=== PATIENT | male | born 1940 | race Caucasian/White ===

== ENCOUNTER → 2017-08-09 08:34 | Outpatient (CLI) | payer MEDICARE, BC, SELFPAY ==
[2017-08-09 09:07] LABS: Absolute Lymphocyte Count 1.33 X10^3/ul (0.83-4.51); Basophil# 0.03 X10^3/uL; Basophil% 0.6 % (0-1); Eosinophil# 0.26 X10^3/uL; Eosinophils% 5.1 % (0-5); Hematocrit 40.6 % (40-54); Hemoglobin 13.2 g/dl (13.0-16.5); Lymphocyte # 1.33 X10^3/ul (4.0); Mean Corp Hgb Conc 32.5 g/gl (32-36); Mean Corpuscular Hgb 30.4 pg (27.0-32.0); Mean Corpuscular Volume 93.5 fL (80-94); Mean Platelet Vol. 9.6 fl (6.2-12.0); Monocyte# 0.47 X10^3/uL; Monocyte% 9.2 % (0-10); Neutrophil # 3.03 X10^3/uL (2.7-7.7); Neutrophil % 59.1 % (47-70); Platelet Count 127 K/mm3 (150-450); RBC Distribution Width CV 13.1 % (11.6-14.6); Red Blood Count 4.34 M/mm3 (4.6-6.2); White Blood Count 5.1 K/mm3 (4.4-11.0)
[2017-08-09 09:15] LABS: POSITIVE COUNT NO; POSITIVE DIFFERENTIAL NO; POSITIVE MORPHOLOGY NO
[2017-08-09 09:21] LABS: AST(SGOT) 18 U/L (15-37); Alanine Aminotransfer ALT/SGPT 19 U/L (16-61); Albumin, Serum 3.4 g/dL (3.2-5.0); Alkaline Phosphatase 105 U/L (45-117); Anion Gap 5 (5-15); BUN 15 mg/dL (7-18); BUN/Creat Ratio 18.9 RATIO (10-20); Calcium,Total 8.3 mg/dL (8.5-10.1); Chloride 106 mmol/L (98-107); Creatinine, Serum 0.79 mg/dL (0.70-1.30); EST Glomerular Filtration Rate 101 mL/min (>60); Est Glom Filt Rate - Afr Amer 122 mL/min (>60); Globulin 3.5 g/dL (2.2-4.2); Glucose 94 mg/dL (74-106); Phosphorus 3.1 mg/dL (2.5-4.9); Potassium 3.8 mmol/L (3.5-5.1); Protein, Total 6.9 g/dL (6.4-8.2); Sodium Level 140 mmol/L (136-145)
== END ==
PROVIDERS: Family Provider Family Medicine; PCP Family Medicine; Visit Provider Internal Medicine
DX: D68.4 Acquired coagulation factor deficiency (principal); E87.8 Other disorders of electrolyte and fluid balance, not elsewhere classified; Z91.89 Other specified personal risk factors, not elsewhere classified; E83.40 Disorders of magnesium metabolism, unspecified; K76.9 Liver disease, unspecified; T56.894A Toxic effect of other metals, undetermined, initial encounter; R68.89 Other general symptoms and signs; R63.3 Feeding difficulties; Z78.9 Other specified health status; E83.39 Other disorders of phosphorus metabolism
CPT/HCPCS: 36592; 80053; 83735; 84100; 85025; A4216

== ENCOUNTER → 2017-09-14 08:58 | Outpatient (CLI) | payer MEDICARE, BC, SELFPAY ==
[2017-09-14 09:41] LABS: Absolute Lymphocyte Count 1.17 X10^3/ul (0.83-4.51); Absolute Neutrophil Count 5.5 X10^3/uL (2.0-7.7); Basophil# 0.05 X10^3/uL; Basophil% 0.6 % (0-1); Eosinophil# 0.23 X10^3/uL; Hematocrit 42.7 % (40-54); Hemoglobin 14.3 g/dl (13.0-16.5); Lymphocyte # 1.17 X10^3/ul (4.0); Lymphocyte % 15.1 % (19-41); Mean Corp Hgb Conc 33.5 g/gl (32-36); Mean Corpuscular Hgb 31.2 pg (27.0-32.0); Mean Platelet Vol. 10.2 fl (6.2-12.0); Monocyte# 0.75 X10^3/uL; Monocyte% 9.7 % (0-10); Neutrophil # 5.54 X10^3/uL (2.7-7.7); Neutrophil % 71.5 % (47-70); Platelet Count 143 K/mm3 (150-450); RBC Distribution Width CV 12.9 % (11.6-14.6); RBC Distribution Width SD 43.1 fl (35.1-43.9); Red Blood Count 4.59 M/mm3 (4.6-6.2); White Blood Count 7.8 K/mm3 (4.4-11.0)
[2017-09-14 09:44] LABS: POSITIVE COUNT NO; POSITIVE DIFFERENTIAL NO; POSITIVE MORPHOLOGY NO
[2017-09-14 10:36] LABS: ALB/GLOB Ratio 0.9 RATIO (0.9-2.4); AST(SGOT) 20 U/L (15-37); Alanine Aminotransfer ALT/SGPT 18 U/L (16-61); Albumin, Serum 3.6 g/dL (3.2-5.0); Alkaline Phosphatase 100 U/L (45-117); Anion Gap 8 (5-15); BUN 16 mg/dL (7-18); CRP < 2.90 mg/L (0.0-3.0); Calcium,Total 8.4 mg/dL (8.5-10.1); Chloride 104 mmol/L (98-107); EST Glomerular Filtration Rate 99 mL/min (>60); Est Glom Filt Rate - Afr Amer 120 mL/min (>60); Globulin 3.8 g/dL (2.2-4.2); Glucose 92 mg/dL (74-106); Magnesium 2.3 mg/dL (1.6-2.6); Phosphorus 3.8 mg/dL (2.5-4.9); Potassium 4.1 mmol/L (3.5-5.1); Protein, Total 7.4 g/dL (6.4-8.2); Sodium Level 139 mmol/L (136-145)
[2017-09-15 08:58] LABS: Vitamin B12 560 pg/mL (211-911)
[2017-09-17 09:52] LABS: Methylmalonic Acid Bld 156 nmol/L (0-378)
== END ==
PROVIDERS: Family Provider Family Medicine; PCP Family Medicine
DX: D68.4 Acquired coagulation factor deficiency (principal); K76.9 Liver disease, unspecified; T56.894A Toxic effect of other metals, undetermined, initial encounter; R68.89 Other general symptoms and signs; E83.39 Other disorders of phosphorus metabolism; E83.40 Disorders of magnesium metabolism, unspecified; R63.3 Feeding difficulties; Z78.9 Other specified health status; Z91.89 Other specified personal risk factors, not elsewhere classified
CPT/HCPCS: 36592; 80053; 82306; 82607; 83735; 83921; 84100; 85025; 86140; A4216

== ENCOUNTER → 2017-10-26 09:02 | Outpatient (CLI) | payer MEDICARE, BC, SELFPAY ==
[2017-10-26 09:12] LABS: Absolute Lymphocyte Count 0.99 X10^3/ul (0.83-4.51); Absolute Neutrophil Count 5.3 X10^3/uL (2.0-7.7); Basophil# 0.03 X10^3/uL; Basophil% 0.4 % (0-1); Eosinophil# 0.25 X10^3/uL; Eosinophils% 3.5 % (0-5); Hematocrit 41.5 % (40-54); Hemoglobin 13.9 g/dl (13.0-16.5); Lymphocyte # 0.99 X10^3/ul (4.0); Lymphocyte % 13.8 % (19-41); Mean Corp Hgb Conc 33.5 g/gl (32-36); Mean Corpuscular Hgb 31.2 pg (27.0-32.0); Mean Corpuscular Volume 93.3 fL (80-94); Mean Platelet Vol. 10.4 fl (6.2-12.0); Monocyte# 0.59 X10^3/uL; Monocyte% 8.2 % (0-10); Neutrophil # 5.31 X10^3/uL (2.7-7.7); Platelet Count 136 K/mm3 (150-450); RBC Distribution Width CV 12.9 % (11.6-14.6); RBC Distribution Width SD 43.1 fl (35.1-43.9); Red Blood Count 4.45 M/mm3 (4.6-6.2); White Blood Count 7.2 K/mm3 (4.4-11.0)
[2017-10-26 09:13] LABS: POSITIVE COUNT NO; POSITIVE DIFFERENTIAL NO; POSITIVE MORPHOLOGY NO
[2017-10-26 09:38] LABS: ALB/GLOB Ratio 0.9 RATIO (0.9-2.4); AST(SGOT) 20 U/L (15-37); Alanine Aminotransfer ALT/SGPT 15 U/L (16-61); Albumin, Serum 3.5 g/dL (3.2-5.0); Alkaline Phosphatase 101 U/L (45-117); Anion Gap 7 (5-15); BUN 18 mg/dL (7-18); BUN/Creat Ratio 24.8 RATIO (10-20); Calcium,Total 8.3 mg/dL (8.5-10.1); Chloride 106 mmol/L (98-107); Creatinine, Serum 0.73 mg/dL (0.70-1.30); EST Glomerular Filtration Rate 111 mL/min (>60); Est Glom Filt Rate - Afr Amer 135 mL/min (>60); Globulin 3.8 g/dL (2.2-4.2); Glucose 95 mg/dL (74-106); Magnesium 2.3 mg/dL (1.6-2.6); Phosphorus 3.1 mg/dL (2.5-4.9); Potassium 4.5 mmol/L (3.5-5.1); Protein, Total 7.3 g/dL (6.4-8.2); Sodium Level 140 mmol/L (136-145)
[2017-10-30 10:50] LABS: Methylmalonic Acid Bld 236 nmol/L (0-378)
[2017-11-01 11:18] LABS: Vitamin A, Retinol 42.8
== END ==
PROVIDERS: Family Provider Family Medicine; PCP Family Medicine
DX: E87.8 Other disorders of electrolyte and fluid balance, not elsewhere classified (principal); E83.39 Other disorders of phosphorus metabolism; E83.40 Disorders of magnesium metabolism, unspecified; K76.9 Liver disease, unspecified; D68.4 Acquired coagulation factor deficiency; R63.3 Feeding difficulties; R68.89 Other general symptoms and signs; R79.82 Elevated C-reactive protein (CRP); Z78.9 Other specified health status; Z91.89 Other specified personal risk factors, not elsewhere classified
CPT/HCPCS: 36592; 80053; 83735; 83921; 84100; 84590; 85025; A4216

== ENCOUNTER → 2017-12-20 09:00 | Outpatient (CLI) | payer MEDICARE, BC, SELFPAY ==
[2017-12-20 09:57] LABS: Hematocrit 41.1 % (40-54); Hemoglobin 13.3 g/dl (13.0-16.5); Mean Corp Hgb Conc 32.4 g/gl (32-36); Mean Corpuscular Hgb 30.7 pg (27.0-32.0); Mean Corpuscular Volume 94.9 fL (80-94); Platelet Count 118 K/mm3 (150-450); RBC Distribution Width CV 13.2 % (11.6-14.6); RBC Distribution Width SD 46.3 fl (35.1-43.9); Red Blood Count 4.33 M/mm3 (4.6-6.2); Scan Indicated on CBC? Y/N NO; White Blood Count 4.7 K/mm3 (4.4-11.0)
[2017-12-20 10:05] LABS: ALB/GLOB Ratio 0.9 RATIO (0.9-2.4); AST(SGOT) 22 U/L (15-37); Alanine Aminotransfer ALT/SGPT 20 U/L (16-61); Albumin, Serum 3.4 g/dL (3.2-5.0); Alkaline Phosphatase 105 U/L (45-117); Anion Gap 8 (5-15); BUN 15 mg/dL (7-18); BUN/Creat Ratio 20.8 RATIO (10-20); Calcium,Total 8.5 mg/dL (8.5-10.1); Chloride 105 mmol/L (98-107); Creatinine, Serum 0.72 mg/dL (0.70-1.30); EST Glomerular Filtration Rate 112 mL/min (>60); Est Glom Filt Rate - Afr Amer 136 mL/min (>60); Globulin 3.7 g/dL (2.2-4.2); Glucose 90 mg/dL (74-106); Phosphorus 2.9 mg/dL (2.5-4.9); Potassium 3.9 mmol/L (3.5-5.1); Protein, Total 7.1 g/dL (6.4-8.2); Sodium Level 140 mmol/L (136-145)
== END ==
PROVIDERS: Family Provider Family Medicine; PCP Family Medicine
DX: E87.8 Other disorders of electrolyte and fluid balance, not elsewhere classified (principal); E83.39 Other disorders of phosphorus metabolism; E83.40 Disorders of magnesium metabolism, unspecified; R63.3 Feeding difficulties; Z91.89 Other specified personal risk factors, not elsewhere classified; Z78.9 Other specified health status
CPT/HCPCS: 36592; 80053; 83735; 84100; 85027; A4216

== ENCOUNTER 2017-12-22 09:27 | Emergency (ER) | payer MEDICARE, BC, SELFPAY ==
[2017-12-22] VITALS (17 sets, daily range): BP systolic 61–178; BP diastolic 38–119; PULSE 75–149; RESP 12–18; O2SAT 91–100
[2017-12-22] MEDS: Etomidate 20 MG/10 ML Vial IV (09:30)
[2017-12-22] MEDS: Succinylcholine Chloride 200 MG/10 ML Vial 100 MG IV (09:30)
--- NOTE | 2017-12-22 09:39 | CT_ITS ---
STUDY: CT BRAIN WITHOUT CONTRAST REASON FOR EXAM: Male, 77 years old. Unresponsive. Severe headaches. RADIATION DOSAGE (If Supplied By Facility): CTDIvol = ( 44.98 ) mGy, DLP = ( 812.98 ) mGycm TECHNIQUE: Transaxial CT imaging of the brain was performed without administration of intravenous contrast material. Individualized dose optimization techniques were used for this CT. COMPARISON: None. FINDINGS: Normal soft tissue structures. Normal calvarium. There is evidence of a subarachnoid as well as intraventricular acute hemorrhage. Blood is seen within the fourth ventricle, third ventricle and lateral ventricles as well as the cisterns. Air fluid level in the left maxillary sinus. Partial opacification of the ethmoid sinuses bilaterally. CT/Brain/Head without Contrast IMPRESSION: Subarachnoid, intraventricular acute hemorrhage. Ruptured aneurysm should be ruled out. Electronically Signed: Bryce Hernandez MD at 9:54 EDT Tel [phone], Service support ,
--- NOTE | 2017-12-22 09:40 | EKG12_ITS ---
Test Reason : CODE BLUE Blood Pressure : / mmHG Vent. Rate : 147 BPM Atrial Rate : 081 BPM P-R Int : 136 ms QRS Dur : 082 ms QT Int : 238 ms P-R-T Axes : 078 045 010 degrees QTc Int : 372 ms Sinus rhythm with Premature atrial complexes Abnormal ECG When compared with ECG of 11-OCT-2012 01:53, Premature atrial complexes are now Present ST now depressed in Lateral leads Confirmed by MAUREEN ROSA ([id number]), map editor KARL CROUCH ([id number]) on 01/04/2018 2:10:13 PM Referred By: Damon Harrington Confirmed By:MAUREEN ROSA
--- NOTE | 2017-12-22 09:44 | CM.ED ---
Social Work Note SW responded to [employer]. ISI face to face with pt's son, Pieter Conner Jr. According to Pieter the pt and he were [place] in [email or web address] this [place] when the pt stated that his head was killing him. Pieter drove him to the hospital. Support provided. Declines to have SW contact anyone at this time. States that he will contact his mother, and then will need to go pick her up as she does not drive. Claims that the pt was in [facility] for 30+ days and has been on TPN. Reports that the pt is primarily independent and was just mowing and gardening this week. Pt's PCP is Dr. Rosales at [facility]. If pt would need transferred they would like this to be to [facility]. Direct Pieter to where EMS parked his vehicle and directed Pieter on how to return to ED and the room his father would be in. SW to continue to follow and assist. Liliana Ovalles, FORKLIFT TRUCK OPERATOR, SPECTROGRAPHER
[2017-12-22] MEDS: 0.9% Normal Saline 1,000 ML 1000 ML IV (09:50)
[2017-12-22] MEDS: 0.9% Normal Saline 1,000 ML 999 ML IV ×2 (09:55→10:13)
[2017-12-22 10:00] LABS: Absolute Lymphocyte Count 4.11 X10^3/ul (0.83-4.51); Absolute Neutrophil Count 7.1 X10^3/uL (2.0-7.7); Basophil# 0.06 X10^3/uL; Basophil% 0.5 % (0-1); Eosinophil# 0.19 X10^3/uL; Eosinophils% 1.5 % (0-5); Hematocrit 43.5 % (40-54); Hemoglobin 13.8 g/dl (13.0-16.5); Lymphocyte # 4.11 X10^3/ul (4.0); Lymphocyte % 33.1 % (19-41); Mean Corp Hgb Conc 31.7 g/gl (32-36); Mean Corpuscular Hgb 30.8 pg (27.0-32.0); Mean Corpuscular Volume 97.1 fL (80-94); Mean Platelet Vol. 10.6 fl (6.2-12.0); Monocyte# 0.97 X10^3/uL; Monocyte% 7.8 % (0-10); Neutrophil # 7.05 X10^3/uL (2.7-7.7); Neutrophil % 56.7 % (47-70); POSITIVE COUNT NO; POSITIVE DIFFERENTIAL NO; POSITIVE MORPHOLOGY NO; Platelet Count 138 K/mm3 (150-450); RBC Distribution Width CV 13.4 % (11.6-14.6); RBC Distribution Width SD 47.9 fl (35.1-43.9); Red Blood Count 4.48 M/mm3 (4.6-6.2); White Blood Count 12.4 K/mm3 (4.4-11.0)
[2017-12-22 10:15] LABS: Base Excess -7 mmol/L (-2 to +2); Bicarbonate 20.7 mmol/L (22-26); Blood Gas Specimen Type ART; FI02 60; Mode A-C; O2 Delivery Device Vent; PEEP 5; PO2 119 mmHG (75-100); RR 14; SITE R Brachial; SO2 97 % (95-99); Time Given 1008; Total Carbon Dioxide 22 mmol/L; Vt 500; pCO2 53.8 mmHg (35-45); pH 7.19 (7.35-7.45)
[2017-12-22 10:15] LABS: ALB/GLOB Ratio 0.9 RATIO (0.9-2.4); AST(SGOT) 33 U/L (15-37); Alanine Aminotransfer ALT/SGPT 28 U/L (16-61); Albumin, Serum 3.5 g/dL (3.2-5.0); Alkaline Phosphatase 115 U/L (45-117); Anion Gap 10 (5-15); BUN 22 mg/dL (7-18); BUN/Creat Ratio 18.6 RATIO (10-20); Calcium,Total 8.2 mg/dL (8.5-10.1); Chloride 108 mmol/L (98-107); Creatinine, Serum 1.18 mg/dL (0.70-1.30); EST Glomerular Filtration Rate 64 mL/min (>60); Est Glom Filt Rate - Afr Amer 77 mL/min (>60); Estimated Creatinine Clearance 54.49 ml/min; Globulin 3.8 g/dL (2.2-4.2); Glucose 247 mg/dL (74-106); Potassium 4.2 mmol/L (3.5-5.1); Protein, Total 7.3 g/dL (6.4-8.2); Sodium Level 142 mmol/L (136-145)
[2017-12-22 10:21] LABS: International Normalized Ratio 1.1; Partial Thromboplast Time 26.9 Seconds (24.1-36.2); Prothrombin Time (Protime)PT. 13.9 SECONDS (11.7-14.9)
[2017-12-22] MEDS: levETIRAcetam IV 1,000 MG/100 ML BAG 400 MG IV (10:28)
--- NOTE | 2017-12-22 10:35 | ED.RN ---
[facility] ARRIVED
--- NOTE | 2017-12-22 10:43 | ED.RN ---
[facility] TRANSPORT AT BEDSIDE, WITH DR UDTTON, ATTEMPTING CENTRAL LINE. REPORT GIVEN TO TRANSPORT TEAM BY ED MD.
[2017-12-22 10:50] LABS: Lactic Acid 3.6 mmol/L (0.4-2.0)
--- NOTE | 2017-12-22 10:50 | ED.RN ---
lactic 3.6, aware.
--- NOTE | 2017-12-22 10:51 | RAD_ITS ---
STUDY: X-RAY CHEST REASON FOR EXAM: Male, 77 years old. Unresponsive. Endotracheal tube placement. TECHNIQUE: Single AP portable view of the chest. COMPARISON: None. FINDINGS: An endotracheal tube is in situ. The tip is at 3.2 sinus proximal to the vi. A right-sided central catheter is seen with the tip in the right atrium. EKG electrodes are seen. Findings suggestive of a mild degree of vascular congestion. Increased markings at the right lung base most likely representing scarring. Left pleural effusion with a left basilar infiltration and/or atelectasis. There is mild cardiac enlargement. Normal mediastinum and torrie. Normal visualized pulmonary arteries. There is atherosclerotic calcification of the aortic arch with tortuosity. There is a dextroscoliosis of the thoracic spine. There is degenerative osteoarthritis of the bilateral shoulders. A covered stent graft is seen in the abdominal aorta. RAD/Chest 1 View (Portable) IMPRESSION: Endotracheal tube in situ. Small bilateral pleural effusions left greater than right with possible left lower lobe atelectasis and/or infiltrate superimposed on vascular congestion. Electronically Signed: Bryce Hernandez MD at 11:45 EDT Tel [phone], Service support ,
--- NOTE | 2017-12-22 10:54 | CM.ED ---
Social Work Note Pt to be transferred to [facility]. Pt's son did not have a cell phone, and therefore the physician has not been able to update the family. There are numbers in the chart listed for the pt's son and from past visits. Placed call to the son's listed number and recording states that it has been disconnected. Placed call to the number listed for the and there is no answer. Will watch for family to arrive and will update physician once here. Liliana Ovalles, PREVENTIVE MAINTENANCE ENGINEER, GRIT REMOVAL OPERATOR
--- NOTE | 2017-12-22 11:12 | ED.RN ---
TO [facility] WITH TRANSPORT TEAM AT THIS TIME. FAMILY ARRIVED. DR DUTTON GIVEN FAMILY UPDATE.
--- NOTE | 2017-12-22 11:55 | ED.DCSUM_ITS ---
- ER Visit Summary Date of Service: 12/22/17 Chief Complaint: Unresponsive History of Present Illness: The patient is a [address] Aaron. Son reports that they were fishing. He was walking up the trial and sat down on a bucket and complained of a headache and shortness of breath. He then collapsed and became unresponsive. Son brought him to the emergency department in their car. He reports that he was intermittently moaning during the transport. Physical Examination: Upon arrival to the emergency department the patient has agonal respirations and is pulseless. He is in PEA in the 140s. Head: No evidence of trauma. Cardiovascular: Tachycardic regular rhythm without murmur. Respiratory: Agonal respirations with minimal air movement. Abdomen: Soft and nondistended. Extremity: No signs of trauma. Neurologic: Patient is unresponsive with a GCS of 3. Test Results: CT brain shows subarachnoid hemorrhage ruptured aneurysm should be ruled out. CBC is more for white count 12.4, platelets 138. Chem-7 more for chloride 108, BUN 22, glucose 247, calcium of 8.2. LFTs are normal. INR is 1.1. PTT is 26.9. Troponin is negative. Lactic acid is 3.6. ABG shows pH 7.19 with a CO2 of 53.8. Emergency Department Course and Treatment: Patient was placed in a bed chest compressions were started and the patient was placed on supplemental oxygen by nonrebreather. He required less than 1 minute of chest compressions. He was given etomidate and succinylcholine and intubated on the first attempt without difficulty. Patient's blood pressure decreased into the 60s-70s systolic. After discussion with the MICU attending at [facility] the patient was placed on a Levophed drip. He was also given Keppra IV. Attempts were made at central venous access that were unsuccessful. Patient had an IO placed in the right tibia. Treatment Plan: Patient was discussed with Dr. Auguste, a neurosurgeon at [facility], the [facility]. [facility] was auto launched and have taken the patient to the emergency department there. Had a prolonged discussion with the and son about the poor prognosis of the patient. Disposition: Transfer transferred in critical condition. Impression: 1. Subarachnoid hemorrhage. 2. Intubation by the physician. 3. Critical care time 60 minutes. Procedure: The patient was prepped and draped in the usual sterile fashion. I wore a cap, gown, and mask. The right internal jugular was accessed under direct visualization with the site right. The vessel was accessed on the first attempt. The guidewire would not pass. Visualization of the left internal jugular was then performed. The vessel was small and collapsed with even the weight of the site right. I did attempt to cannulate the vessel without success. I then attempted to visualize the right femoral vein. He has scars in both the right and left inguinal regions. The origin of this is not clear. I was unable to visualize the left femoral vein. A blind attempt was made with return of arterial blood. This was not dilated and a sandbag was placed. The patient was unresponsive throughout this and tolerated it well. Postprocedure x-ray shows no pneumothorax. This note was generated with [email or web address] dictation software. It may contain incorrect words, spelling, and punctuation that were not noted in review of the chart prior to signing ED Disposition - Plan for ED Patient: Chief Complaint: Unresponsive Referrals: Twan Aaron DO [Primary Care Provider] -
[2017-12-22 14:11] LABS: Reflex Lactate? Y
== END 2017-12-22 10:51 | disposition short-term general hospital (02) ==
PROVIDERS: Emergency Provider Emergency Medicine; Family Provider Family Medicine; PCP Family Medicine
DX: I60.8 Other nontraumatic subarachnoid hemorrhage (principal); I10 Essential (primary) hypertension; I71.2 Thoracic aortic aneurysm, without rupture; Z79.82 Long term (current) use of aspirin; Z79.899 Other long term (current) drug therapy; Z82.49 Family history of ischemic heart disease and other diseases of the circulatory system
CPT/HCPCS: 31500; 31720; 36600; 51702; 70450; 71045; 80053; 82803; 83605; 84484; 85025; 85610; 85730; 92950; 93005; 94002; 96365; 96368; 99285; J7030; A4216